=== PATIENT | male | born 1985 | race Caucasian/White ===

== ENCOUNTER 2016-11-27 04:13 | Inpatient (IN) | payer OTHER, MEDICARE ==
[2016-11-27] MEDS ORDERED: RX INFO: IV CONTRAST WAS GIVEN 1 EACH MISC MISCELLANE PRN (04:20)
[2016-11-27] MEDS ORDERED: DIPH,PERTUS(ACELL)TETVAC-LF 0.5 ML VIAL IM ONE (04:22)
[2016-11-27 04:39] LABS: Basophils % (A) 0 %; CH 30.3; Eosinophils # (A) 0.1 k/uL (0-0.7); Eosinophils % (A) 1 %; HCT 41.9 % (39.0-53.0); Luc % (Auto) 1; Lymphocytes % (A) 6 %; MCH 30.8 pg (25.0-35.0); MCHC 33.3 g/dL (31.0-37.0); MCV 92.5 fL (80.0-100.0); Mean Platelet Volume 7.5; Monocytes # (A) 0.7 k/uL (0-1.0); Monocytes % (A) 4 %; Neutrophils # (A) 14.9 k/uL (1.3-7.7); Neutrophils % (A) 89 %; RBC 4.53 m/uL (4.30-5.90); RDW 13.7 % (11.5-15.5); WBC 16.9 k/uL (3.8-10.6)
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
[2016-11-27 04:53] LABS: ALT 50 U/L (21-72); AST 52 U/L (17-59); Alkaline Phosphatase 67 U/L (38-126); Anion Gap 15 mmol/L; Blood Urea Nitrogen 9 mg/dL (9-20); Calcium 9.5 mg/dL (8.4-10.2); Carbon Dioxide 18 mmol/L (22-30); Chloride 110 mmol/L (98-107); Glucose 114 mg/dL (74-99); Non-African American GFR(MDRD) >60 (>60 ml/min/1.73 sqM); Potassium 4.5 mmol/L (3.5-5.1); Sodium 143 mmol/L (137-145)
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
[2016-11-27] MEDS ORDERED: SODIUM CHLORIDE 0.9% 1,000 ML IV ONE (05:49)
[2016-11-27] MEDS ORDERED: ACETAMINOPHEN TAB 325 MG TAB PO STA (06:15)
[2016-11-27] MEDS ORDERED: ONDANSETRON 4 MG/2 ML VIAL IVP PRN (06:40)
[2016-11-27] MEDS ORDERED: NALOXONE 0.4 MG/ML 1 ML VIAL IV PRN (06:40)
[2016-11-27] MEDS ORDERED: MORPHINE SULFATE 4 MG/ML SYRINGE IV PRN (06:40)
[2016-11-27] MEDS ORDERED: SODIUM CHLORIDE 0.9% 1,000 ML IV SCH (06:45)
[2016-11-27 06:49] LABS: Appearance,Urine Clear (Clear); Bacteria,Urine Rare /hpf; Bilirubin,Urine Negative (Negative); Glucose,Urine (UA) Negative (Negative); Ketones,Urine Trace (Negative); Leukocyte Esterase,Urine Trace (Negative); Mucus,Urine Few /hpf; Nitrite,Urine Positive (Negative); PH, Urine 5.5 (5.0-8.0); Particle Count 35040; Protein,Urine 2+ (Negative); RBC,Urine 2 /hpf (0-5); Squamous Epithelial Cell,Urine <1 /hpf (0-4); UA Billing (MACRO vs. MICRO) MICRO; Urobilinogen,Urine <2.0 mg/dL (<2.0); WBC,Urine 9 /hpf (0-5)
[2016-11-27] MEDS: BACLOFEN 10 MG TAB PO SCH ×3 (07:54→22:13)
[2016-11-27] MEDS: FAMOTIDINE 20 MG/2 ML VIAL IV SCH ×2 (07:55→22:10)
[2016-11-27] MEDS: MIDODRINE 5 MG TAB PO SCH ×2 (07:58→17:01)
[2016-11-27] MEDS: SENNOSIDES-DOCUSATE SODIUM 1 EACH TAB PO SCH (08:28)
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
[2016-11-27 12:34] LABS: INR 1.1 (<1.2); Partial Thromboplastin Time 25.7 sec (22.0-30.0); Prothrombin Time 11.2 sec (9.0-12.0)
[2016-11-27] MEDS: ACETAMINOPHEN TAB 325 MG TAB PO PRN (12:44)
[2016-11-27] MEDS: MULTIVITAMINS, THERA 1 EACH TAB PO SCH (12:45)
[2016-11-27] MEDS ORDERED: CRANBERRY FRUIT EXTRACT 650 MG PO SCH (21:00)
[2016-11-27] MEDS: OXYBUTYNIN 10 MG TAB.ER.24 PO SCH (22:11)
[2016-11-27] MEDS: BISACODYL 10 MG SUPP RECTAL SCH (22:13)
[2016-11-28] MEDS: ACETAMINOPHEN TAB 325 MG TAB PO PRN (00:34)
[2016-11-28] MEDS: MIDODRINE 5 MG TAB PO SCH ×2 (08:59→12:11)
[2016-11-28] MEDS: FAMOTIDINE 20 MG/2 ML VIAL IV SCH ×2 (08:59→21:36)
[2016-11-28] MEDS: SENNOSIDES-DOCUSATE SODIUM 1 EACH TAB PO SCH (08:59)
[2016-11-28] MEDS: BACLOFEN 10 MG TAB PO SCH ×3 (09:00→21:36)
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
[2016-11-28] MEDS: SODIUM CHLORIDE 0.9% 1,000 ML IV SCH ×2 (11:44→18:54)
[2016-11-28] MEDS: MULTIVITAMINS, THERA 1 EACH TAB PO SCH (12:09)
--- NOTE | 2016-11-28 13:08 | P.PN ---
Subjective 31-year-old with the quadriplegia admitted for left femoral fracture. Patient had fever and patient is tachycardic because of which will often essentially workup and patient will receive preoperative antibiotics as well and we will obtain a blood culture, urine culture, urinalysis chest x-ray patient's UA from yesterday was not impressive patient was is on IV fluids at this time. Patient denied any cough, chest pain, nausea, vomiting, dysuria. Objective - Vital Signs Vital signs: Vital Signs Temp 97.6 F 11/28/16 07:00 Pulse 112 H 11/28/16 07:00 Resp 18 11/28/16 07:00 BP 104/63 11/28/16 07:00 Pulse Ox 99 11/28/16 07:00 Intake & Output 11/27/16 11/28/16 11/28/16 18:59 06:59 18:59 Output Total 400 1500 Balance -400 -1500 Weight 63.503 kg Output: Urine 400 1500 Stool 0 Other: Voiding Method Self-Catheterization Indwelling Catheter # Voids 0 # Bowel Movements 1 - Exam GENERAL: The patient is alert and oriented x3, not in any acute distress. Well developed, well nourished. HEENT: Pupils are round and equally reacting to light. EOMI. No scleral icterus. No conjunctival pallor. Normocephalic, atraumatic. No pharyngeal erythema. No thyromegaly. CARDIOVASCULAR: S1 and S2 present. No murmurs, rubs, or gallops. PULMONARY: Chest is clear to auscultation, no wheezing or crackles. ABDOMEN: Soft, nontender, nondistended, normoactive bowel sounds. No palpable organomegaly. MUSCULOSKELETAL: Deferred to orthopedic surgery EXTREMITIES: No cyanosis, clubbing, or pedal edema. NEUROLOGICAL: Gross neurological examination did not reveal any new focal deficits. Patient does have chronic weakness and bilateral lower limbs and some weakness in upper limbs from his quadriplegia patient has a previous tracheostomy scar. SKIN: No rashes. - Labs CBC & Chem 7: 11/27/16 04:30 11/27/16 04:30 Assessment and Plan Plan: #1 left femoral shaft fracture: Being managed by arthritic surgery. #2 quadriplegia with the previous spinal cord injury: Patient uses baclofen for spasms which she will continue. #3 leukocytosis : Patient had fever last night because of which will often septic workup today #4 hyperchloremia due to IV fluids which were discontinued, folic acidosis is secondary to hyperchloremia. No further intervention is necessary at this point of time #5 history of gluteal abscess in the past completely healed scars now. #6 mild protein calorie malnutrition. Patient from medical perspective is okay to be discharged if that's the the plan from orthopedic perspective
[2016-11-28 13:17] LABS: Appearance,Urine Cloudy (Clear); Bacteria,Urine Rare /hpf; Bilirubin,Urine Negative (Negative); Glucose,Urine (UA) Negative (Negative); Ketones,Urine 4+ (Negative); Leukocyte Esterase,Urine Large (Negative); Mucus,Urine Rare /hpf; Nitrite,Urine Negative (Negative); Particle Count 121902; Protein,Urine Trace (Negative); Specific Gravity,Urine 1.018 (1.001-1.035); Squamous Epithelial Cell,Urine <1 /hpf (0-4); UA Billing (MACRO vs. MICRO) MICRO; Urobilinogen,Urine <2.0 mg/dL (<2.0); WBC,Urine 73 /hpf (0-5)
--- NOTE | 2016-11-28 13:18 | XR ---
EXAMINATION TYPE: XR chest 1V portable DATE OF EXAM: 11/28/2016 COMPARISON: 11/27/16 HISTORY: Chest pain TECHNIQUE: Single frontal view of the chest is obtained. FINDINGS: There is no focal air space opacity, pleural effusion, or pneumothorax seen. The cardiac silhouette size is within normal limits. The osseous structures are intact. IMPRESSION: 1. No acute process.
[2016-11-28 14:04] LABS: CH 30.2; CHCM 32.4; HCT 39.9 % (39.0-53.0); HDW 2.72; HGB 13.2 gm/dL (13.0-17.5); MCV 93.8 fL (80.0-100.0); Mean Platelet Volume 8.5; RBC 4.25 m/uL (4.30-5.90); RDW 13.8 % (11.5-15.5); WBC 16.6 k/uL (3.8-10.6)
[2016-11-28] MEDS ORDERED: ACETAMINOPHEN IV (For NPO) 1,000 MG in EMPTY BAG 1 BAG IVPB STA (14:13)
[2016-11-28 14:49] LABS: Anion Gap 17 mmol/L; Blood Urea Nitrogen 10 mg/dL (9-20); Calcium 9.7 mg/dL (8.4-10.2); Carbon Dioxide 19 mmol/L (22-30); Chloride 105 mmol/L (98-107); Glucose 88 mg/dL (74-99); Non-African American GFR(MDRD) >60 (>60 ml/min/1.73 sqM); Potassium 4.8 mmol/L (3.5-5.1); Sodium 141 mmol/L (137-145)
[2016-11-28] MEDS ORDERED: LEVOFLOXACIN 500MG-D5W PMX 500 MG in DEXTROSE/WATER 1 100ML.BAG IVPB SCH (15:00)
[2016-11-28] MEDS ORDERED: IV FLUID CONTINUATION 500 ML IV ONE (15:46)
[2016-11-28] MEDS ORDERED: ONDANSETRON 4 MG/2 ML VIAL IVP ONE ×2 (16:14→19:37)
--- NOTE | 2016-11-28 16:30 | P.PN ---
Progress Note - Text The patient is seen and examined today at bedside. We had a long discussion regards to the different treatment options with his femur fracture. I discussed the case with a number of my colleagues as well. I feel that receding with fixation of his femur would give him the best chance of healing as well as the quickest return to activities stabilization and ability to mobilize the patient while limiting, occasions such as prolonged bedrest ulceration and decreased mobility. We discussed the different risks at length including the risks of infection risk of need for further surgery risk of problems with the hardware and risks of problems anesthesia. I discussed this with his with the patient as well as with his father and his uncle at bedside. We plan to proceed with closed reduction and into medullary pallavi of the left femur with possible open reduction internal fixation. Answered the patient's questions best of my ability healing she can understand he is agreeable with the plan. He is signed informed consent we'll plan to proceed as soon as possible today. The patient does have chronic issues with urinary tract infection and we are actively treating this as he does have chronic issues with this and regular catheterization needs. He has been medicated for this and I think it is okay to proceed with surgery as scheduled today.
[2016-11-28] MEDS ORDERED: fentaNYL (PF) 50 MCG/ML 2 ML AMP ONE (16:57)
[2016-11-28] MEDS ORDERED: MIDAZOLAM 2 MG/2 ML VIAL ONE (16:57)
[2016-11-28] MEDS ORDERED: GLYCOPYRROLATE 0.2 MG/ML 2 ML VIAL ONE (16:57)
[2016-11-28] MEDS ORDERED: ePHEDrine SULFATE/0.9% NACL/PF 50 MG/5 ML SYRINGE IV ONE (16:57)
[2016-11-28] MEDS ORDERED: PROPOFOL 10 MG/ML 20 ML VIAL IV ONE (16:57)
[2016-11-28] MEDS ORDERED: PHENYLEPHRINE-0.9% NACL SYG 1 MG/10 ML SYRINGE ONE (16:57)
[2016-11-28] MEDS ORDERED: NEOSTIGMINE 1 MG/ML 10 ML VIAL ONE (16:57)
[2016-11-28] MEDS ORDERED: ROCURONIUM BROMIDE 10 MG/ML 10 ML VIAL IV ONE (16:57)
[2016-11-28] MEDS ORDERED: LIDOCAINE 1% INJ 10MG/ML (20 ML MDV) ONE (16:57)
[2016-11-28] MEDS ORDERED: SODIUM CHLORIDE 0.9% 50 ML with ceFAZolin 2,000 MG IV ONE ×2 (17:17)
[2016-11-28] MEDS ORDERED: ceFAZolin 1,000 MG in SODIUM CHLORIDE 0.9% 1,000 ML IRRIGATION ONE (17:38)
[2016-11-28] MEDS ORDERED: LACTATED RINGERS 1,000 ML IV ONE ×2 (17:38→18:45)
[2016-11-28] MEDS ORDERED: NALOXONE 0.4 MG/ML 1 ML VIAL IV PRN (19:47)
[2016-11-28] MEDS ORDERED: HYDROcodone/APAP 5-325MG 1 EACH TAB PO PRN (19:47)
[2016-11-28] MEDS ORDERED: MAGNESIUM HYDROXIDE 2,400 MG/10 ML CUP PO PRN (19:47)
[2016-11-28] MEDS ORDERED: HYDROmorphone 0.5 MG/0.5 ML SYRINGE IVP PRN (19:47)
[2016-11-28] MEDS ORDERED: SENNOSIDES 8.6 MG TAB PO PRN (19:53)
[2016-11-28] MEDS ORDERED: DOCUSATE 100 MG CAP PO PRN (19:53)
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
--- NOTE | 2016-11-28 21:23 | FL ---
EXAMINATION TYPE: FL guidance operating room, XR femur LT DATE OF EXAM: 11/28/2016 CLINICAL HISTORY: Distal left femur fracture. TECHNIQUE: Fluoroscopy. Intraoperative limited views left femur. COMPARISON: Left femur x-ray from yesterday. FINDINGS: Fluoroscopic guidance was provided during open reduction internal fixation procedure perfo rmed by Dr. Ngo. A total of 4 minutes 53 seconds of fluoroscopic time was utilized during the proc edure and 8 spot intraoperative images are acquired. Intraoperative images acquired show placement of large intramedullary pallavi with 4 distal transverse fi xating screws through comminuted fracture deformity distal femoral metadiaphysis. Improved alignment is seen after reduction and fixation. IMPRESSION: As Above.
[2016-11-28] MEDS: OXYBUTYNIN 10 MG TAB.ER.24 PO SCH (21:36)
[2016-11-28] MEDS: BISACODYL 10 MG SUPP RECTAL SCH (21:36)
[2016-11-28 21:54] LABS: Basophils % (A) 0 %; CH 30.4; CHCM 32.6; Eosinophils # (A) 0.1 k/uL (0-0.7); Eosinophils % (A) 1 %; HCT 26.6 % (39.0-53.0); HDW 2.68; Luc # (Auto) 0.08; Luc % (Auto) 1; Lymphocytes # (A) 0.9 k/uL (1.0-4.8); Lymphocytes % (A) 10 %; MCH 31.2 pg (25.0-35.0); MCHC 33.2 g/dL (31.0-37.0); MCV 93.8 fL (80.0-100.0); Mean Platelet Volume 7.9; Monocytes # (A) 0.4 k/uL (0-1.0); Monocytes % (A) 5 %; Neutrophils # (A) 7.3 k/uL (1.3-7.7); Neutrophils % (A) 82 %; RBC 2.83 m/uL (4.30-5.90); RDW 13.8 % (11.5-15.5); WBC 8.9 k/uL (3.8-10.6); WBC (Perox) 8.99
[2016-11-28 22:20] LABS: HGB 8.8 gm/dL (13.0-17.5)
[2016-11-29] MEDS: ceFAZolin 2 GM in SODIUM CHLORIDE 0.9% 100 ML IVPB SCH ×3 (00:49→15:53)
[2016-11-29] MEDS: SODIUM CHLORIDE 0.9% 1,000 ML IV SCH ×4 (03:16→23:47)
[2016-11-29] MEDS: BACLOFEN 10 MG TAB PO SCH ×3 (07:44→21:34)
[2016-11-29] MEDS: MIDODRINE 5 MG TAB PO SCH ×2 (07:45→11:30)
[2016-11-29] MEDS: FAMOTIDINE 20 MG/2 ML VIAL IV SCH (07:45)
[2016-11-29] MEDS: SENNOSIDES-DOCUSATE SODIUM 1 EACH TAB PO SCH (07:46)
[2016-11-29 07:54] LABS: CH 29.9; CHCM 31.9; HCT 26.3 % (39.0-53.0); HDW 2.77; HGB 8.6 gm/dL (13.0-17.5); MCH 30.9 pg (25.0-35.0); MCHC 32.8 g/dL (31.0-37.0); MCV 94.4 fL (80.0-100.0); Mean Platelet Volume 7.9; RBC 2.78 m/uL (4.30-5.90); WBC 7.3 k/uL (3.8-10.6)
[2016-11-29 08:15] LABS: Anion Gap 11 mmol/L; Blood Urea Nitrogen 6 mg/dL (9-20); Carbon Dioxide 17 mmol/L (22-30); Chloride 109 mmol/L (98-107); Glucose 68 mg/dL (74-99); Non-African American GFR(MDRD) >60 (>60 ml/min/1.73 sqM); Potassium 3.9 mmol/L (3.5-5.1); Sodium 137 mmol/L (137-145)
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
[2016-11-29] MEDS: ENOXAPARIN 40 MG/0.4 ML SYRINGE SQ SCH (09:55)
[2016-11-29] MEDS: MULTIVITAMINS, THERA 1 EACH TAB PO SCH (12:27)
[2016-11-29] MEDS ORDERED: LEVOFLOXACIN 500 MG TAB PO SCH (15:00)
[2016-11-29] MEDS: ACETAMINOPHEN TAB 325 MG TAB PO PRN (17:01)
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
[2016-11-29] MEDS: OXYBUTYNIN 10 MG TAB.ER.24 PO SCH (21:34)
[2016-11-29] MEDS: FAMOTIDINE 20 MG TAB PO SCH (21:35)
[2016-11-29] MEDS: BISACODYL 10 MG SUPP RECTAL SCH ×2 (21:35→21:42)
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
[2016-11-29] MEDS: ERTAPENEM 1 GM in SODIUM CHLORIDE 0.9% 50 ML IVPB SCH (23:43)
[2016-11-30] MEDS: ceFAZolin 2 GM in SODIUM CHLORIDE 0.9% 100 ML IVPB SCH ×3 (00:46→16:01)
[2016-11-30] MEDS: MIDODRINE 5 MG TAB PO SCH ×2 (09:00→13:14)
[2016-11-30] MEDS: ENOXAPARIN 40 MG/0.4 ML SYRINGE SQ SCH (09:00)
[2016-11-30] MEDS: BACLOFEN 10 MG TAB PO SCH ×3 (09:00→20:23)
[2016-11-30] MEDS: FAMOTIDINE 20 MG TAB PO SCH ×2 (09:00→20:23)
[2016-11-30 10:03] VITALS: BMI 19.5
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
[2016-11-30] MEDS: MULTIVITAMINS, THERA 1 EACH TAB PO SCH (13:14)
[2016-11-30] MEDS: SODIUM CHLORIDE 0.9% 1,000 ML IV SCH ×2 (14:45→17:31)
[2016-11-30] MEDS: SENNOSIDES-DOCUSATE SODIUM 1 EACH TAB PO SCH (14:46)
--- NOTE | 2016-11-30 15:45 | P.PN ---
Subjective 31-year-old with the quadriplegia admitted for left femoral fracture. Patient had fever and patient is tachycardic because of which will often essentially workup and patient will receive preoperative antibiotics as well and we will obtain a blood culture, urine culture, urinalysis chest x-ray patient's UA from yesterday was not impressive patient was is on IV fluids at this time. 11/29/2016 Patient has little bit abnormal urine because of which patient was started on levofloxacin although patient may have dysautonomia because of which the patient was having fevers patient had low-grade fever yesterday, will hold off on levofloxacin and the although cultures are so far negative chest x-ray did not show any pneumonic process. Infectious disease will be consulted patient knows Dr. Cheatham very well. 11/30/2016 Patient does have history of PE as well and the infectious diseases believe patient has urinary tract infection because of which patient was started on ertapenem ceftezole and was discontinued and the ID is recommending a PICC line placement on IV antibiotics as an outpatient. Patient denied any cough, chest pain, nausea, vomiting, dysuria. Objective - Vital Signs Vital signs: Vital Signs Temp 101.5 F H 11/30/16 14:55 Pulse 111 H 11/30/16 14:55 Resp 18 11/30/16 14:55 BP 123/72 11/30/16 14:55 Pulse Ox 98 11/30/16 14:55 Intake & Output 11/29/16 11/30/16 11/30/16 18:59 06:59 18:59 Intake Total 100 1000 Output Total 1100 800 400 Balance -1000 -800 600 Weight 63.503 kg 63.503 kg Intake: Intake, IV Titration 100 1000 Amount Sodium Chloride 0.9% 1, 1000 000 ml @ 125 mls/hr IV . Q8H [facility] Rx#:[id number] ceFAZolin 2 gm In Sodium 100 Chloride 0.9% 100 ml @ 100 mls/hr IVPB Q8HR [facility] Rx#:[id number] Output: Urine 1100 800 400 Stool 0 Other: Voiding Method Indwelling Catheter Indwelling Catheter Indwelling Catheter # Voids 0 400 # Bowel Movements 0 2 0 - Exam GENERAL: The patient is alert and oriented x3, not in any acute distress. Well developed, well nourished. HEENT: Pupils are round and equally reacting to light. EOMI. No scleral icterus. No conjunctival pallor. Normocephalic, atraumatic. No pharyngeal erythema. No thyromegaly. CARDIOVASCULAR: S1 and S2 present. No murmurs, rubs, or gallops. PULMONARY: Chest is clear to auscultation, no wheezing or crackles. ABDOMEN: Soft, nontender, nondistended, normoactive bowel sounds. No palpable organomegaly. MUSCULOSKELETAL: Deferred to orthopedic surgery EXTREMITIES: No cyanosis, clubbing, or pedal edema. NEUROLOGICAL: Gross neurological examination did not reveal any new focal deficits. Patient does have chronic weakness and bilateral lower limbs and some weakness in upper limbs from his quadriplegia patient has a previous tracheostomy scar. SKIN: No rashes. - Labs CBC & Chem 7: 11/29/16 07:19 11/29/16 07:19 Labs: Microbiology - Last 24 Hours (Table) 11/28/16 12:55 Blood Culture - Preliminary Blood No Growth after 48 hours 11/28/16 12:42 Blood Culture - Preliminary Blood No Growth after 48 hours 11/28/16 13:00 Urine Culture - Preliminary Urine,Catheterized Gram Neg Bacilli Assessment and Plan Plan: #1 left femoral shaft fracture: Being managed by arthritic surgery. #2 quadriplegia with the previous spinal cord injury: Patient uses baclofen for spasms which she will continue. #3 leukocytosis : Patient had fever further , possibly of urinary tract infection for which infectious disease switched him to carb up in arms and patient will be discharged on ertapenem after PICC line placement awaiting urine cultures #4 hyperchloremia due to IV fluids which were discontinued, folic acidosis is secondary to hyperchloremia. No further intervention is necessary at this point of time #5 history of gluteal abscess in the past completely healed scars now. #6 mild protein calorie malnutrition.
[2016-11-30] MEDS: ERTAPENEM 1 GM in SODIUM CHLORIDE 0.9% 50 ML IVPB SCH (20:23)
[2016-11-30] MEDS: OXYBUTYNIN 10 MG TAB.ER.24 PO SCH (20:23)
[2016-11-30] MEDS: BISACODYL 10 MG SUPP RECTAL SCH (20:24)
[2016-11-30 20:36] LABS: Basophils % (A) 1 %; CH 29.8; CHCM 30.7; Eosinophils # (A) 0.1 k/uL (0-0.7); Eosinophils % (A) 3 %; HCT 24.3 % (39.0-53.0); HDW 2.77; HGB 7.7 gm/dL (13.0-17.5); Hypochromasia Moderate; Luc # (Auto) 0.13; Luc % (Auto) 3; Lymphocytes # (A) 1.1 k/uL (1.0-4.8); Lymphocytes % (A) 21 %; MCH 30.9 pg (25.0-35.0); MCHC 31.6 g/dL (31.0-37.0); MCV 97.7 fL (80.0-100.0); Mean Platelet Volume 7.4; Monocytes # (A) 0.3 k/uL (0-1.0); Monocytes % (A) 6 %; Neutrophils # (A) 3.4 k/uL (1.3-7.7); Neutrophils % (A) 67 %; RBC 2.49 m/uL (4.30-5.90); RDW 14.2 % (11.5-15.5); WBC 5.1 k/uL (3.8-10.6); WBC (Perox) 5.37
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
[2016-12-01] MEDS: ACETAMINOPHEN TAB 325 MG TAB PO PRN (02:55)
[2016-12-01] MEDS: SODIUM CHLORIDE 0.9% 1,000 ML IV SCH ×3 (06:03→18:35)
[2016-12-01] MEDS: MIDODRINE 5 MG TAB PO SCH ×2 (08:41→12:19)
[2016-12-01] MEDS: FAMOTIDINE 20 MG TAB PO SCH ×2 (08:41→22:34)
[2016-12-01] MEDS: BACLOFEN 10 MG TAB PO SCH ×3 (08:41→22:34)
[2016-12-01] MEDS: ENOXAPARIN 40 MG/0.4 ML SYRINGE SQ SCH (08:42)
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
[2016-12-01] MEDS: MULTIVITAMINS, THERA 1 EACH TAB PO SCH (12:19)
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
[2016-12-01] MEDS ORDERED: SENNOSIDES-DOCUSATE SODIUM 1 EACH TAB PO SCH (21:00)
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
[2016-12-01] MEDS: OXYBUTYNIN 10 MG TAB.ER.24 PO SCH (22:34)
[2016-12-01] MEDS: BISACODYL 10 MG SUPP RECTAL SCH (22:41)
[2016-12-01] MEDS: ERTAPENEM 1 GM in SODIUM CHLORIDE 0.9% 50 ML IVPB SCH (22:41)
[2016-12-02] MEDS: SODIUM CHLORIDE 0.9% 1,000 ML IV SCH ×2 (04:58→10:10)
[2016-12-02] MEDS: ACETAMINOPHEN TAB 325 MG TAB PO PRN (07:41)
[2016-12-02] MEDS: MIDODRINE 5 MG TAB PO SCH ×2 (07:42→11:59)
[2016-12-02] MEDS: BACLOFEN 10 MG TAB PO SCH ×2 (07:42→12:00)
[2016-12-02] MEDS: FAMOTIDINE 20 MG TAB PO SCH (07:43)
[2016-12-02 07:52] VITALS: BP 125/74; PULSE 98; RESP 18; TEMP 98.8
[2016-12-02] MEDS ORDERED: LIDOCAINE 2% INJ 20 MG/ML SQ ONE (08:20)
--- NOTE | 2016-12-02 08:22 | P.PN ---
Progress Note - Text Progress Note Date: 12/02/16 Patient was attempted to be seen and examined at bedside this morning. Nursing states he's currently having a PICC line placed. After PICC line placement, patient is planning be discharged home this morning.
[2016-12-02] MEDS: MULTIVITAMINS, THERA 1 EACH TAB PO SCH (11:59)
[2016-12-02] MEDS: ERTAPENEM 1 GM in SODIUM CHLORIDE 0.9% 50 ML IVPB SCH (12:00)
--- NOTE | 2016-12-02 12:17 | IR ---
PICC LINE PLACEMENT: HISTORY: Infection requiring long-term antibiotic therapy PROCEDURE: Ultrasound and fluoroscopic guidance of PICC line placement. COMPLICATIONS: None ANESTHESIA: 1. 1% Lidocaine locally. FINDINGS/TECHNIQUE: The procedure was explained to the patient. The risks, complications, benefits and alternatives were discussed and any questions were answered. Informed consent was obtained. The patient was placed supine on the fluoroscopic table and prepped and draped in the usual sterile [facility] ion. Utilizing a 21 gauge needle and sonographic and fluoroscopic guidance, access in the vein was achieved and there is placement of a 0.018 guidewire. The vein is patent. A 4-F sheath was placed o samy the guidewire. The guidewire and dilator were removed and a 4-F. PICC line was placed through th e sheath with the tip at the level of the SVC. The sheath was removed, the catheter was flushed and sutured into position. The patient was stable throughout the procedure and remained stable upon disc harge from the Department of Radiology. The vein puncture was patent under ultrasound. A montalvo scale image was obtained to document patency of the vein punctured. All elements of the maximal barrier technique were utilized. FLUOROSCOPY TIME: 0.1 minute, one image obtained IMPRESSION: Successful PICC line placement under ultrasound and fluoroscopic guidance.
--- NOTE | 2016-12-02 15:32 | P.PN ---
Subjective 31-year-old with the quadriplegia admitted for left femoral fracture. Patient had fever and patient is tachycardic because of which will often essentially workup and patient will receive preoperative antibiotics as well and we will obtain a blood culture, urine culture, urinalysis chest x-ray patient's UA from yesterday was not impressive patient was is on IV fluids at this time. 11/29/2016 Patient has little bit abnormal urine because of which patient was started on levofloxacin although patient may have dysautonomia because of which the patient was having fevers patient had low-grade fever yesterday, will hold off on levofloxacin and the although cultures are so far negative chest x-ray did not show any pneumonic process. Infectious disease will be consulted patient knows Dr. Cheatham very well. 11/30/2016 Patient does have history of PE as well and the infectious diseases believe patient has urinary tract infection because of which patient was started on ertapenem ceftezole and was discontinued and the ID is recommending a PICC line placement on IV antibiotics as an outpatient. 12/01/2016 Patient is awaiting PICC line placement no complaints today. 12/02/2016 Patient had a PICC line today is being discharged today in stable medical condition to home. Patient denied any cough, chest pain, nausea, vomiting, dysuria. Objective - Vital Signs Vital signs: Vital Signs Temp 98.8 F 12/02/16 07:51 Pulse 98 12/02/16 07:51 Resp 18 12/02/16 07:51 BP 125/74 12/02/16 07:51 Pulse Ox 98 12/02/16 07:51 Intake & Output 12/01/16 12/02/16 12/02/16 18:59 06:59 18:59 Intake Total 750 Output Total 1550 Balance 750 -1550 Intake: Intake, IV Titration 750 Amount Sodium Chloride 0.9% 1, 750 000 ml @ 125 mls/hr IV . Q8H [facility] Rx#:[id number] Output: Urine 1550 Other: Voiding Method Indwelling Catheter Indwelling Catheter Indwelling Catheter # Bowel Movements 2 - Exam GENERAL: The patient is alert and oriented x3, not in any acute distress. Well developed, well nourished. HEENT: Pupils are round and equally reacting to light. EOMI. No scleral icterus. No conjunctival pallor. Normocephalic, atraumatic. No pharyngeal erythema. No thyromegaly. CARDIOVASCULAR: S1 and S2 present. No murmurs, rubs, or gallops. PULMONARY: Chest is clear to auscultation, no wheezing or crackles. ABDOMEN: Soft, nontender, nondistended, normoactive bowel sounds. No palpable organomegaly. MUSCULOSKELETAL: Deferred to orthopedic surgery EXTREMITIES: No cyanosis, clubbing, or pedal edema. NEUROLOGICAL: Gross neurological examination did not reveal any new focal deficits. Patient does have chronic weakness and bilateral lower limbs and some weakness in upper limbs from his quadriplegia patient has a previous tracheostomy scar. SKIN: No rashes. - Labs CBC & Chem 7: 11/30/16 20:06 11/29/16 07:19 Labs: Microbiology - Last 24 Hours (Table) 11/28/16 12:55 Blood Culture - Preliminary Blood No Growth after 96 hours 11/28/16 12:42 Blood Culture - Preliminary Blood No Growth after 96 hours Assessment and Plan Plan: #1 left femoral shaft fracture: Being managed by arthritic surgery. #2 quadriplegia with the previous spinal cord injury: Patient uses baclofen for spasms which she will continue. #3 leukocytosis : Patient had fever further , possibly of urinary tract infection for which infectious disease switched him to carbapenems and patient will be discharged on ertapenem after PICC line placement urine cultures are showing a ESBL E. coli #4 hyperchloremia due to IV fluids which resolved #5 history of gluteal abscess in the past completely healed scars now. #6 mild protein calorie malnutrition.
== END 2016-12-02 13:20 | disposition home health service (06) | DRG 480 ==
LOC: EC 04:13 → 4MS4W 06:42
PROVIDERS: ADMIT Orthopaedic Surgery Orthopaedic Surgery of the Spine; ATTEND Orthopaedic Surgery Orthopaedic Surgery of the Spine
PROC: 0QSC34Z Reposition Left Lower Femur with Internal Fixation Device, Percutaneous Approach (ICD-10-PCS; principal; 2016-11-27)
PROC: 02HV33Z Insertion of Infusion Device into Superior Vena Cava, Percutaneous Approach (ICD-10-PCS; 2016-11-27)
PROC: B518ZZA Fluoroscopy of Superior Vena Cava, Guidance (ICD-10-PCS; 2016-11-27)
PROC: B54MZZA Ultrasonography of Right Upper Extremity Veins, Guidance (ICD-10-PCS; 2016-11-27)
DX: S72.402A Unspecified fracture of lower end of left femur, initial encounter for closed fracture (principal); G82.50 Quadriplegia, unspecified; L89.329 Pressure ulcer of left buttock, unspecified stage; E87.8 Other disorders of electrolyte and fluid balance, not elsewhere classified; E44.1 Mild protein-calorie malnutrition; N39.0 Urinary tract infection, site not specified; L02.31 Cutaneous abscess of buttock; Z68.1 Body mass index [BMI] 19.9 or less, adult; M81.0 Age-related osteoporosis without current pathological fracture; S01.01XA Laceration without foreign body of scalp, initial encounter; M62.838 Other muscle spasm; F12.90 Cannabis use, unspecified, uncomplicated; S80.812A Abrasion, left lower leg, initial encounter; R00.0 Tachycardia, unspecified; Z82.49 Family history of ischemic heart disease and other diseases of the circulatory system; Z83.3 Family history of diabetes mellitus; Z87.891 Personal history of nicotine dependence; Z88.2 Allergy status to sulfonamides; Z88.8 Allergy status to other drugs, medicaments and biological substances; Z86.14 Personal history of Methicillin resistant Staphylococcus aureus infection; Z79.2 Long term (current) use of antibiotics; V48.1XXA Car passenger injured in noncollision transport accident in nontraffic accident, initial encounter; Y92.410 Unspecified street and highway as the place of occurrence of the external cause; Z86.19 Personal history of other infectious and parasitic diseases; Z86.711 Personal history of pulmonary embolism
CPT/HCPCS: 36415; 36569; 70450; 71010; 72125; 72170; 74177; 76937; 77001; 80048; 80053; 81001; 83605; 84484; 85025; 85027; 85610; 85730; 86850; 86900; 86901; 87040; 87077; 87086; 87186; 90471; 90715; 93005; 94760; 96360; 99285

== ENCOUNTER 2017-03-06 11:19 | Day surgery (SDC) | payer MEDICARE, OTHER ==
[2017-03-06 07:53] VITALS: BMI 19.5
[~2017-03-06 11:19] MED LIST: BACITRACIN 50,000 UNIT, POLYMYXIN B 500,000 UNIT in SODIUM CHLORIDE 0.9% IRRIGATIO 1,00... IRRIGATION ONE; Pre Op ABX Message 1 EACH MISC MISCELLANE ONE
[2017-03-06] MEDS ORDERED: LIDOCAINE 1% 20 ML VIAL (10MG/ML) FOR IV START INTRADERMA PRN (11:25)
[2017-03-06] MEDS ORDERED: ONDANSETRON 4 MG/2 ML VIAL IVP ONE (11:25)
[2017-03-06] MEDS ORDERED: HYDROmorphone 0.5 MG/0.5 ML SYRINGE IVP PRN (11:25)
[2017-03-06] MEDS ORDERED: LACTATED RINGERS 1,000 ML IV SCH (11:25)
[2017-03-06 11:48] VITALS: RESP 16; TEMP 98.2
[2017-03-06] MEDS ORDERED: DEXAMETHASONE SOD PHOS (MDV) 100 MG/10 ML VIAL IV ONE (11:54)
[2017-03-06] MEDS ORDERED: MIDAZOLAM 2 MG/2 ML VIAL ONE (12:48)
[2017-03-06] MEDS ORDERED: fentaNYL (PF) 50 MCG/ML 2 ML AMP ONE (12:48)
[2017-03-06] MEDS ORDERED: PROPOFOL 10 MG/ML 20 ML VIAL IV ONE (12:48)
[2017-03-06] MEDS ORDERED: HYDROcodone/APAP 5-325MG 1 EACH TAB PO PRN (13:28)
[2017-03-06] MEDS ORDERED: SENNOSIDES 8.6 MG TAB PO PRN (13:35)
[2017-03-06] MEDS ORDERED: DOCUSATE 100 MG CAP PO PRN (13:35)
[2017-03-06] MEDS ORDERED: traMADol 50 MG TAB PO PRN (13:35)
--- NOTE | 2017-03-06 13:48 | P.OP ---
Date of Procedure: 03/06/17 Preoperative Diagnosis: Recurrent olecranon bursitis Olecranon bursal hypertrophy Postoperative Diagnosis: Same Anesthesia: other (Sedation, patient has history of quadriplegia and decreased sensation at his upper and lower extremities) Pathology: other (Deep wound culture sent to pathology, hypertrophic olecranon bursa sent to pathology) Condition: stable Disposition: PACU Description of Procedure: BRIEF OPERATIVE NOTE Preoperative Diagnosis: Recurrent olecranon bursitis, olecranon bursal hypertrophy Postoperative Diagnosis: Same Procedure: Irrigation and debridement of right olecranon bursa Excisional debridement of hypertrophic olecranon bursa Surgeon: Dr. Ngo Cell Tender Helper: Chris Zabala is present throughout the entire the case persistence during positioning, dissection, exposure, visualization, and all crucial elements of the case as well as closure. Anesthesia: anesthesia with sedation (patient has history of quadriplegia and decreased sensation in upper and lower extremities) Estimated blood loss: Approximately 50 mL Complications: None apparent Components implanted: None Specimen; deep wound culture sent to microbiology, large portions of hypertrophic olecranon bursa sent to pathology Disposition: To recovery room in good stable condition. OPERATIVE INDICATIONS The patient has been having issues in his right elbow over the past month. He had noted some swelling at the area. He is subtotal quadriplegic with no use of his lower extremities and limited use of his upper extremities. He uses a wheelchair for mobilization but is able to transfer himself to his wheelchair in general and we'll himself with his bilateral upper extremities though he has limited function in his hands wrist elbows and shoulders. He developed some swelling over his right elbow and was found have some olecranon bursitis. This was initially drained in the office with some clear straw-colored fluid approximately 30 mL drained. He had some compression and local wound treatment but developed recurrent bursitis. He did not have any evidence of infection. There is no erythema there is no followed her there is no skin breakdown. There is no evidence of injury. He had recurrent drainage but there is persistent thickening about the olecranon bursa and recurrent drainage quickly. He again had significant recurrence of the bursitis to a greater extent than it had before and was not having any evidence of infection or fevers or skin breakdown. We felt however that the persistent recurrence and the significant thickening of the bursa that he would do well with irrigation and debridement and excision of the bursa itself. We discussed different risks, patient alternatives and benefits of various treatment options ranging from conservative to surgical neck discussed the risks of surgery including but not limited to the risk of bleeding risk and infection risk and need for further surgery risk of decreased loss of motion loss function was all explained to him the patient elected to proceed with surgical intervention and signed informed consent. OPERATIVE SUMMARY After discussing all the risks, patient alternatives and benefits at length, the patient elected to proceed with surgical intervention, signed informed consent, and presented for their procedure. The patient was seen and examined in the preoperative holding area and the surgical site was marked. The patient was given antibiotics and brought to the operating room. The patient was sedated by anesthesia in standard fashion. The patient was positioned on to the operating room table in a supine position on the appropriate frame which was well-padded and well molded. We were careful to pad any bony prominences and pressure points. We were careful to maintain the patient's cervical spine and good neutral alignment and position throughout. The patient was prepped and draped in a normal standard fashion with his right arm draped free and a nonsterile tourniquet over his right upper extremity. We did not use the tourniquet.. An appropriate timeout and keystone protocol performed. We were able to proceed with the surgery. The olecranon bursa was easily identified. An incision was made over the posterior lateral aspect of the olecranon bursa approximately 1 inch in length. A large amount of straw-colored fluid and bloody fluid came out of the significant inflamed olecranon bursa. There is portions of fat globules as well. There is no evidence of purulence. There is no foul odor. There is no evidence of obvious infection. There is large hypertrophy of the olecranon bursa itself. I was able to palpate and fell large palpable capsule fragments. I then dissected under the skin and around the capsule was able to remove large portions of the olecranon bursa itself. It was severely hypertrophic. There is no evidence of any involvement in the muscle or the triceps or the bone itself. The triceps appear to be intact as did the various muscular suture. I did not explore or see the ulnar nerve. I was able to remove large portions of the olecranon bursa which were sent for pathology. With area removed and the significant reduction in the size I was able to then copiously irrigated and suctioned dry the area. We were able to proceed with closure. Deep tissue was tacked down with 2-0 Vicryl and skin was closed with nylon. The wound was cleaned and dried and dressed with the appropriate dressing. The drapes were broken down. We're able to dress patient in a bulky dressing with Cosme wrap. He was transferred back to his stretcher being stable from the anesthesia and brought to recovery in good stable condition. The patient will be discharged from the hospital after appropriate postoperative care, medical management and monitoring. We will continue to follow them closely about the postoperative course. I'll plan to see the patient back tomorrow as an outpatient for recheck evaluation.
[2017-03-06 14:27] VITALS: BP 112/68; PULSE 63
[2017-03-06] MEDS ORDERED: ceFAZolin IN SWFI 2 GM/20 ML SYRINGE IVP SCH (16:00)
[2017-03-06] MEDS ORDERED: BACLOFEN 40 MG PO SCH (21:00)
[2017-03-06] MEDS ORDERED: NON-FORMULARY DRUG (Midodrine Hcl [Proamatine] 10 MG) PO SCH (21:00)
[2017-03-07] MEDS ORDERED: OXYBUTYNIN 10 MG TAB.ER.24 PO SCH (09:00)
[2017-03-07] MEDS ORDERED: CRANBERRY FRUIT EXTRACT 650 MG PO SCH (09:00)
== END 2017-03-06 14:31 | disposition home or self-care (01) ==
LOC: OR 11:19
PROVIDERS: ATTEND Orthopaedic Surgery Orthopaedic Surgery of the Spine
DX: M70.21 Olecranon bursitis, right elbow (principal); S14.155S Other incomplete lesion at C5 level of cervical spinal cord, sequela; V92.0 Drowning and submersion due to fall off watercraft; G82.50 Quadriplegia, unspecified; Z99.3 Dependence on wheelchair; Z79.899 Other long term (current) drug therapy; Z79.891 Long term (current) use of opiate analgesic; Z88.1 Allergy status to other antibiotic agents; Z88.2 Allergy status to sulfonamides
CPT/HCPCS: 88305; 87070; 87205; 87075; 24105; J2250; J2405; J3010; J1100; J2704; 87077; 87186

== ENCOUNTER 2018-04-29 06:44 | Emergency (ER) | payer MEDICARE, OTHER ==
[2018-04-29] MEDS ORDERED: MORPHINE SULFATE 4 MG/ML SYRINGE IV STA (07:13)
[2018-04-29] MEDS ORDERED: METOCLOPRAMIDE 5 MG/ML 2 ML VIAL IVP STA (07:13)
[2018-04-29] MEDS ORDERED: SODIUM CHLORIDE 0.9% 1,000 ML IV STA ×2 (07:13)
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
[2018-04-29 08:17] LABS: Basophils % (A) 1 %; Eosinophils # (A) 0.1 k/uL (0-0.7); Eosinophils % (A) 2 %; HCT 38.2 % (39.0-53.0); Lymphocytes # (A) 0.7 k/uL (1.0-4.8); Lymphocytes % (A) 16 %; MCH 30.3 pg (25.0-35.0); Mean Platelet Volume 7.5; Monocytes # (A) 0.3 k/uL (0-1.0); Monocytes % (A) 8 %; Neutrophils # (A) 3.3 k/uL (1.3-7.7); Neutrophils % (A) 72 %; Platelet Count 216 k/uL (150-450); RBC 4.29 m/uL (4.30-5.90); RDW 13.5 % (11.5-15.5); WBC 4.6 k/uL (3.8-10.6)
[2018-04-29 08:28] LABS: ALT 31 U/L (21-72); AST 18 U/L (17-59); Albumin 4.3 g/dL (3.5-5.0); Alkaline Phosphatase 56 U/L (38-126); Amylase 38 U/L (30-110); Anion Gap 11 mmol/L; Blood Urea Nitrogen 10 mg/dL (9-20); Calcium 9.6 mg/dL (8.4-10.2); Carbon Dioxide 25 mmol/L (22-30); Chloride 105 mmol/L (98-107); Glucose 93 mg/dL (74-99); Lipase 31 U/L (23-300); Potassium 4.2 mmol/L (3.5-5.1); Sodium 141 mmol/L (137-145); Total Bilirubin 1.9 mg/dL (0.2-1.3); Total Protein 6.9 g/dL (6.3-8.2)
[2018-04-29 08:56] LABS: Appearance,Urine Cloudy (Clear); Bacteria,Urine Many /hpf; Bilirubin,Urine Negative (Negative); Blood,Urine Trace (Negative); Color,Urine Yellow; Glucose,Urine (UA) Negative (Negative); Ketones,Urine 2+ (Negative); Leukocyte Esterase,Urine Large (Negative); Mucus,Urine Few /hpf; Nitrite,Urine Positive (Negative); Protein,Urine 1+ (Negative); RBC,Urine 10 /hpf (0-5); Specific Gravity,Urine 1.017 (1.001-1.035); Squamous Epithelial Cell,Urine 2 /hpf (0-4); Urobilinogen,Urine <2.0 mg/dL (<2.0); WBC,Urine >182 /hpf (0-5)
--- NOTE | 2018-04-29 09:33 | CT ---
EXAMINATION TYPE: CT abdomen pelvis w con DATE OF EXAM: 04/29/2018 COMPARISON: 11/27/2016 HISTORY: 32-year-old male generalized pain TECHNIQUE: Contiguous axial scanning of the abdomen and pelvis following administration of 100 ml Iso carlene 300 IV contrast. Delayed images through the kidneys and coronal/sagittal reconstructions perform ed. CT DLP: 435.8 mGycm Automated exposure control for dose reduction was used. FINDINGS: Heart normal size without pericardial effusion. Lung bases clear without pleural effusion. No focal liver lesion or biliary ductal dilatation. Portal venous system is patent. Gallbladder, adrenal glands, kidneys, spleen, and pancreas appear within normal limits. IVC filter is demonstrated. Incidental elongated 11 x 4 mm appendicolith. No abnormal appendiceal dilatation. No dilated small olivier wel or free air. No evidence of mesenteric or retroperitoneal lymphadenopathy though assessment is li mited due to possibility of intra-abdominal fat. There is [id number] circumferential wall thickening of the mid to distal rectum with mild andrew cral edema and mild pelvic free fluid. No significant rectal stool. No pelvic lymphadenopathy seen. Bones: Old bony deformity right lesser trochanter and prior partially visualized intramedullary naili ng of the left femur. No osseous destructive process. IMPRESSION: 1. MILD TO MODERATE CIRCUMFERENTIAL WALL THICKENING MID TO DISTAL RECTUM WITH PRESACRAL EDEMA AND MIL D PELVIC FREE FLUID. CORRELATE FOR PROCTITIS. 2. INCIDENTAL 1.1 CM ELONGATED APPENDICOLITH WITHOUT EVIDENCE FOR ACUTE APPENDICITIS.
[2018-04-29] MEDS ORDERED: cefTRIAXone IN SWFI 1,000 MG/10 ML SYRINGE IVP STA (09:40)
[2018-04-29 10:21] VITALS: BP 143/100; PULSE 56; RESP 14; TEMP 97.3
== END 2018-04-29 11:24 | disposition home or self-care (01) ==
LOC: EC 06:44
DX: N39.0 Urinary tract infection, site not specified (principal); G82.50 Quadriplegia, unspecified; R10.31 Right lower quadrant pain; R10.33 Periumbilical pain; Z86.14 Personal history of Methicillin resistant Staphylococcus aureus infection; Z79.899 Other long term (current) drug therapy; Z88.2 Allergy status to sulfonamides; Z88.1 Allergy status to other antibiotic agents
CPT/HCPCS: 36415; 80053; 82150; 83690; 85025; 81001; 74177; 96374; 96375 ×2; 96361; 99285; J2270; J2765; J0696; Q9967

== ENCOUNTER 2018-05-20 07:04 | Observation (INO) | payer MEDICARE, OTHER ==
[2018-05-20] MEDS ORDERED: SODIUM CHLORIDE 0.9% 1,000 ML IV STA (07:37)
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
[2018-05-20 08:31] LABS: VBG PH 7.4 (7.31-7.41)
[2018-05-20 08:34] LABS: Basophils % (A) 0 %; Eosinophils # (A) 0.2 k/uL (0-0.7); Eosinophils % (A) 2 %; HCT 39.9 % (39.0-53.0); HGB 13.3 gm/dL (13.0-17.5); Lymphocytes % (A) 11 %; MCHC 33.4 g/dL (31.0-37.0); Mean Platelet Volume 7.4; Monocytes # (A) 0.4 k/uL (0-1.0); Monocytes % (A) 4 %; Neutrophils # (A) 7.1 k/uL (1.3-7.7); Neutrophils % (A) 82 %; Platelet Count 216 k/uL (150-450); RBC 4.43 m/uL (4.30-5.90); RDW 13.3 % (11.5-15.5); WBC 8.7 k/uL (3.8-10.6)
[2018-05-20 08:43] LABS: ALT 22 U/L (21-72); AST 19 U/L (17-59); Albumin 4.3 g/dL (3.5-5.0); Alkaline Phosphatase 48 U/L (38-126); Anion Gap 9 mmol/L; Blood Urea Nitrogen 19 mg/dL (9-20); Calcium 9.5 mg/dL (8.4-10.2); Carbon Dioxide 25 mmol/L (22-30); Chloride 103 mmol/L (98-107); Glucose 93 mg/dL (74-99); Lipase 74 U/L (23-300); Sodium 137 mmol/L (137-145); Total Bilirubin 1.4 mg/dL (0.2-1.3); Total Protein 6.8 g/dL (6.3-8.2)
[2018-05-20 08:48] LABS: Appearance,Urine Clear (Clear); Bacteria,Urine Many /hpf; Bilirubin,Urine Negative (Negative); Blood,Urine Negative (Negative); Color,Urine Yellow; Glucose,Urine (UA) Negative (Negative); Ketones,Urine Negative (Negative); Leukocyte Esterase,Urine Trace (Negative); Mucus,Urine Rare /hpf; Nitrite,Urine Negative (Negative); Protein,Urine Negative (Negative); Specific Gravity,Urine 1.014 (1.001-1.035); Squamous Epithelial Cell,Urine <1 /hpf (0-4); Urobilinogen,Urine <2.0 mg/dL (<2.0); WBC,Urine 5 /hpf (0-5)
[2018-05-20] MEDS ORDERED: NALOXONE 0.4 MG/ML 1 ML VIAL IV PRN (09:52)
[2018-05-20] MEDS: SODIUM CHLORIDE 0.9% 1,000 ML IV SCH (10:22)
[2018-05-20 15:26] VITALS: BMI 17.2
[2018-05-20] MEDS ORDERED: SENNOSIDES 8.6 MG TAB PO PRN (18:22)
[2018-05-20] MEDS ORDERED: traMADol 50 MG TAB PO PRN (18:22)
[2018-05-20] MEDS ORDERED: MIDODRINE 5 MG TAB PO SCH (21:00)
[2018-05-20] MEDS ORDERED: OXYBUTYNIN 10 MG TAB.ER.24 PO SCH (21:00)
[2018-05-20] MEDS ORDERED: BISACODYL 10 MG SUPP RECTAL SCH (21:00)
[2018-05-20] MEDS ORDERED: BACLOFEN 10 MG TAB PO SCH (21:00)
[2018-05-20] MEDS: DOCUSATE 100 MG CAP PO SCH (22:37)
[2018-05-21] MEDS: BACLOFEN 10 MG TAB PO SCH ×2 (08:19→12:36)
[2018-05-21] MEDS: DOCUSATE 100 MG CAP PO SCH ×2 (08:19→08:28)
[2018-05-21] MEDS: MIDODRINE 5 MG TAB PO SCH ×2 (08:19→12:36)
[2018-05-21 08:22] LABS: Basophils % (A) 0 %; Eosinophils # (A) 0.1 k/uL (0-0.7); Eosinophils % (A) 2 %; HGB 13.2 gm/dL (13.0-17.5); Lymphocytes # (A) 1.1 k/uL (1.0-4.8); Lymphocytes % (A) 31 %; MCH 29.8 pg (25.0-35.0); MCHC 33.1 g/dL (31.0-37.0); Mean Platelet Volume 8.3; Monocytes # (A) 0.3 k/uL (0-1.0); Monocytes % (A) 8 %; Neutrophils # (A) 1.9 k/uL (1.3-7.7); Neutrophils % (A) 56 %; Platelet Count 216 k/uL (150-450); RBC 4.44 m/uL (4.30-5.90); RDW 13.7 % (11.5-15.5); WBC 3.5 k/uL (3.8-10.6)
[2018-05-21 08:39] LABS: Anion Gap 6 mmol/L; Blood Urea Nitrogen 10 mg/dL (9-20); Calcium 9.2 mg/dL (8.4-10.2); Carbon Dioxide 27 mmol/L (22-30); Chloride 108 mmol/L (98-107); Glucose 85 mg/dL (74-99); Potassium 4.6 mmol/L (3.5-5.1); Sodium 141 mmol/L (137-145)
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
[2018-05-21] MEDS: SODIUM CHLORIDE 0.9% 1,000 ML IV SCH (09:39)
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
[2018-05-21] MEDS ORDERED: HEPARIN SODIUM,PORCINE 5,000 UNIT/ML 1 ML VIAL SQ SCH (11:15)
[2018-05-21 12:02] VITALS: BP 97/57; PULSE 100; TEMP 98.5
[2018-05-21] MEDS ORDERED: DICYCLOMINE 10 MG CAP PO PRN (12:31)
--- NOTE | 2018-05-21 15:07 | XR ---
EXAMINATION TYPE: XR abdomen 1V DATE OF EXAM: 05/21/2018 COMPARISON: None INDICATION: Constipation stool burden TECHNIQUE: Single view abdomen supine view FINDINGS: Stomach is distended with bowel gas. Normal colonic bowel gas is within the descending colon and kaur sverse colon region. Mild fecal debris is near the hepatic flexure. A loop of air-filled small bowel loop is near the terminal ileum. A filter is at the L1-L2 level. Psoas margins are normal. Organomegaly is not evident. A Parth's lob e of liver is likely present. No organomegaly is present. IMPRESSION: 1. Nonspecific abdomen. 2. Significant stool retention is not evident
[2018-05-21 20:32] VITALS: RESP 16
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
== END 2018-05-21 21:20 | disposition home or self-care (01) ==
LOC: EC 07:04 → 3NMEDONC 09:52
PROVIDERS: ADMIT Hospitalist; ATTEND Hospitalist
DX: R10.9 Unspecified abdominal pain (principal); I95.9 Hypotension, unspecified; R68.0 Hypothermia, not associated with low environmental temperature; K59.00 Constipation, unspecified; E87.2 Acidosis; G82.50 Quadriplegia, unspecified; F12.90 Cannabis use, unspecified, uncomplicated; R61 Generalized hyperhidrosis; R23.1 Pallor; R64 Cachexia; Z68.1 Body mass index [BMI] 19.9 or less, adult; Z79.899 Other long term (current) drug therapy; Z88.1 Allergy status to other antibiotic agents; Z88.2 Allergy status to sulfonamides; Z16.12 Extended spectrum beta lactamase (ESBL) resistance; Z95.828 Presence of other vascular implants and grafts; Z87.440 Personal history of urinary (tract) infections; Z87.891 Personal history of nicotine dependence; Z87.81 Personal history of (healed) traumatic fracture; Z87.2 Personal history of diseases of the skin and subcutaneous tissue; Z86.14 Personal history of Methicillin resistant Staphylococcus aureus infection; Z83.3 Family history of diabetes mellitus; Z82.49 Family history of ischemic heart disease and other diseases of the circulatory system; Z83.49 Family history of other endocrine, nutritional and metabolic diseases; W16 Fall, jump or diving into water
CPT/HCPCS: 96372; 96360; 99284; 36415; 80053; 80048; 82803; 83605; 83690; 83735; 85025 ×2; 81001; 87040; 87086; 87077; 87186; 74018; G0378 ×2; J1644

== ENCOUNTER 2018-06-07 10:41 | Day surgery (SDC) | payer MEDICARE, OTHER ==
[2018-06-05 15:49] VITALS: BMI 17.4
[~2018-06-07 10:41] MED LIST changes: -BACITRACIN 50,000 UNIT, POLYMYXIN B 500,000 UNIT in SODIUM CHLORIDE 0.9% IRRIGATIO 1,00... IRRIGATION ONE; +LACTATED RINGERS 1,000 ML IV SCH; +LIDOCAINE 1% 20 ML VIAL (10MG/ML) FOR IV START INTRADERMA PRN; +MIDAZOLAM (PF) 2 MG/2 ML VIAL IV PRN; -Pre Op ABX Message 1 EACH MISC MISCELLANE ONE
[2018-06-07 11:17] VITALS: RESP 16; TEMP 97.9
[2018-06-07] MEDS ORDERED: LIDOCAINE 1% INJ 10MG/ML (20 ML MDV) ONE (12:21)
[2018-06-07] MEDS ORDERED: PROPOFOL 10 MG/ML 20 ML VIAL IV ONE (12:21)
--- NOTE | 2018-06-07 13:20 | P.PCN ---
Date of Procedure: 06/07/18 Description of Procedure: BRIEF HISTORY: The patient is a pleasant 33-year-old male with a known medical history of quadriplegia who is been experiencing abdominal pain and change in his bowel habits over the past few months. At baseline the patient suffers from constipation for which he uses oral laxatives as well as suppositories. He reports bowel movements are fairly stable on this regimen. He has been having abdominal pain though and presents for further evaluation of his symptoms. PROCEDURE PERFORMED: Colonoscopy with biopsy. PREOPERATIVE DIAGNOSIS: Change in bowel habits, abdominal pain. ESTIMATED BLOOD LOSS: Minimal. IV sedation per Anesthesia. PROCEDURE: After informed consent was obtained, the patient, was brought into the endoscopy unit. IV sedation was administered by Anesthesia under continuous monitoring. Digital rectal examination was normal. Initially the Olympus CF-190 flexible video colonoscope was then inserted in the rectum, gradually advanced into the cecum without any difficulty. Careful examination was performed as the scope was gradually being withdrawn. Ileocecal valve and the appendiceal orifice were visualized and appeared normal. Terminal ileum was intubated and appeared normal, with biopsies taken. Prep was excellent. Mucosa of the cecum, ascending colon, transverse colon, descending colon, sigmoid colon, and rectum appeared normal, with random biopsies of the right colon, transverse colon and left colon taken secondary to change in the patient's bowel habits. Retroflexion was performed in the rectum and no lesions were seen, mild internal hemorrhoids noted. The patient tolerated the procedure well. IMPRESSION: Normal-appearing colon from rectum to cecum with random biopsies of the right colon, transverse colon and left colon. Terminal ileum was intubated and appeared normal random biopsies taken Mild internal hemorrhoids. RECOMMENDATIONS: Findings of this examination were discussed with the patient and his family. Await pathology from biopsies. Continue bowel regimen. Okay to resume diet.
[2018-06-07 13:28] VITALS: PULSE 87
[2018-06-07 13:39] VITALS: BP 99/62
== END 2018-06-07 14:14 | disposition home or self-care (01) ==
LOC: ORWHC2ENDO 10:41
PROVIDERS: ATTEND Internal Medicine
DX: R19.4 Change in bowel habit (principal); G82.50 Quadriplegia, unspecified; R10.9 Unspecified abdominal pain; K64.8 Other hemorrhoids; Z88.2 Allergy status to sulfonamides; Z79.891 Long term (current) use of opiate analgesic
CPT/HCPCS: 88305; 45380; J2001; J2704

== ENCOUNTER → 2019-12-23 | Outpatient (CLI) | payer MEDICARE, OTHER ==
--- NOTE | 2019-12-24 07:48 | CT ---
EXAMINATION TYPE: CT abdomen pelvis wo con DATE OF EXAM: 12/23/2019 COMPARISON: 04/29/2018 INDICATION: Abdominal pain, hematuria DLP: 476 mGycm, Automated exposure control for dose reduction was used. CONTRAST: 0 mL of Isovue 300. Study performed with Oral Contrast TECHNIQUE: Axial images were obtained from above the diaphragm to the pubic rami in the axial plane a t 5 mm thick sections. Reconstructed images are reviewed on the computer in the coronal plane. FINDINGS: Limited CT sections are obtained the lung bases. The lung bases are clear. CT ABDOMEN: Liver: Normal Spleen: Normal Pancreas: Normal Adrenal glands: The adrenal glands are normal. Gallbladder: Normal Kidneys: No masses are evident. No hydronephrosis is present. No cysts are present. No renal stone s are identified. Aorta: Vascular calcification is within the aorta. Inferior vena cava: There is a filter within the inferior vena cava. CT PELVIS: Loops of bowel within the abdomen and pelvis are normal. There are multiple loops of bowel which are incompletely distended or lack oral contrast limiting their evaluation. Appendix: Normal as visualized. Urinary bladder: There is a smooth 1.0 x 2.0 cm calcification within the dependent portion of the uri nary bladder. This is a new finding. Genitourinary structures: Prostate is prominent. Osseous structures: No suspicious lytic or sclerotic lesions. IMPRESSIONS: 1. Development of a large urinary bladder calcification. 2. No renal or ureteral stones are identified. Renal collecting system masses may be more difficult t o visualize on this noncontrast study.
== END | disposition home or self-care (01) ==
LOC: RADCTMAIN 17:00
PROVIDERS: ATTEND Family Medicine
DX: R10.84 Generalized abdominal pain (principal); R31.0 Gross hematuria
CPT/HCPCS: 74176

== ENCOUNTER → 2020-01-15 | Outpatient (CLI) | payer MEDICARE, OTHER ==
[2020-01-15 12:20] LABS: Basophils % (A) 1 %; Eosinophils # (A) 0.1 k/uL (0-0.7); Eosinophils % (A) 2 %; HCT 42.7 % (39.0-53.0); HGB 14.5 gm/dL (13.0-17.5); Lymphocytes # (A) 1.5 k/uL (1.0-4.8); Lymphocytes % (A) 25 %; MCH 30.9 pg (25.0-35.0); MCHC 34.1 g/dL (31.0-37.0); MCV 90.7 fL (80.0-100.0); Mean Platelet Volume 8.3; Monocytes # (A) 0.4 k/uL (0-1.0); Monocytes % (A) 6 %; Neutrophils # (A) 3.8 k/uL (1.3-7.7); Neutrophils % (A) 64 %; Platelet Count 246 k/uL (150-450); RDW 12.8 % (11.5-15.5)
[2020-01-15 12:31] LABS: Amorphous Sediment,Urine Rare /hpf; Appearance,Urine Clear (Clear); Bacteria,Urine Rare /hpf; Bilirubin,Urine Negative (Negative); Blood,Urine Negative (Negative); Color,Urine Light Yellow; Glucose,Urine (UA) Negative (Negative); Ketones,Urine Negative (Negative); Leukocyte Esterase,Urine Small (Negative); Mucus,Urine Rare /hpf; Nitrite,Urine Negative (Negative); Protein,Urine Trace (Negative); RBC,Urine 1 /hpf (0-5); Specific Gravity,Urine 1.007 (1.001-1.035); Sperm,Urine Occasional /hpf; Squamous Epithelial Cell,Urine 2 /hpf (0-4); Urobilinogen,Urine <2.0 mg/dL (<2.0); WBC,Urine 7 /hpf (0-5)
[2020-01-15 12:33] LABS: African American GFR (CKD) >90 (>60 ml/min/1.73 sqM); Anion Gap 9 mmol/L; Blood Urea Nitrogen 19 mg/dL (9-20); Calcium 9.9 mg/dL (8.4-10.2); Carbon Dioxide 26 mmol/L (22-30); Chloride 104 mmol/L (98-107); Glucose 93 mg/dL (74-99); Non-African American GFR(CKD) >90 (>60 ml/min/1.73 sqM); Potassium 4.4 mmol/L (3.5-5.1); Sodium 139 mmol/L (137-145)
== END | disposition home or self-care (01) ==
LOC: LABPAT 11:13
PROVIDERS: ATTEND Urology
DX: Z01.818 Encounter for other preprocedural examination (principal); N21.9 Calculus of lower urinary tract, unspecified
CPT/HCPCS: 36415; 80048; 81001; 85025; 87086

== ENCOUNTER 2020-01-22 08:21 | Day surgery (SDC) | payer MEDICARE, OTHER ==
[2020-01-20 08:58] VITALS: BMI 18.1
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
[~2020-01-22 08:21] MED LIST changes: +AMPICILLIN 1,000 MG in SODIUM CHLORIDE 0.9% 50 ML IVPB PRN; +GENTAMICIN 90 MG in SODIUM CHLORIDE 0.9% 100 ML IVPB PRN; +HYDROmorphone 0.5 MG/0.5 ML SYRINGE IVP PRN; -LIDOCAINE 1% 20 ML VIAL (10MG/ML) FOR IV START INTRADERMA PRN; -MIDAZOLAM (PF) 2 MG/2 ML VIAL IV PRN; +MIDAZOLAM 2 MG/2 ML VIAL IV PRN; +ONDANSETRON 4 MG/2 ML VIAL IVP PRN; +fentaNYL (PF) 50 MCG/ML 2 ML AMP IV PRN
--- NOTE | 2020-01-22 08:54 | XR ---
EXAMINATION TYPE: XR KUB DATE OF EXAM: 01/22/2020 8:36 AM CLINICAL HISTORY: Bladder calculus. TECHNIQUE: Two supine KUB images of the abdomen are obtained. COMPARISON: CT abdomen and pelvis December 23, 2019 FINDINGS: The bladder calculus measures 2.2 cm long axis over the central lower pelvis ovoid in shape . Overall nonobstructive bowel gas pattern. IVC filter overlies the right L1-L2 level. Lung bases are c lear. Advanced joint space loss right hip joint redemonstrated. IMPRESSION: There is 2.2 cm bladder calculus redemonstrated.
[2020-01-22] MEDS ORDERED: ONDANSETRON 4 MG/2 ML VIAL ONE (08:56)
[2020-01-22] MEDS ORDERED: DEXAMETHASONE SOD PHOSPHATE 4 MG/ML 1 ML VIAL IVP ONE (09:26)
[2020-01-22] MEDS ORDERED: LIDOCAINE 1% INJ 10MG/ML (20 ML MDV) ONE (10:17)
[2020-01-22] MEDS ORDERED: fentaNYL (PF) 50 MCG/ML 2 ML AMP ONE (10:17)
[2020-01-22] MEDS ORDERED: PROPOFOL 10 MG/ML 20 ML VIAL IV ONE (10:17)
[2020-01-22] MEDS ORDERED: ESMOLOL 100 MG/10 ML VIAL ONE (10:17)
[2020-01-22] MEDS ORDERED: MIDAZOLAM 2 MG/2 ML VIAL ONE (10:17)
[2020-01-22] MEDS ORDERED: GLYCOPYRROLATE 0.2 MG/ML 2 ML VIAL ONE (10:17)
[2020-01-22] MEDS ORDERED: ePHEDrine SULFATE/0.9% NACL/PF 50 MG/5 ML SYRINGE IV ONE (10:17)
--- NOTE | 2020-01-22 11:11 | P.OP ---
Date of Procedure: 01/22/20 Preoperative Diagnosis: Quadriplegia, bladder stone Postoperative Diagnosis: Same Procedure(s) Performed: Cystoscopy with cystolithotripsy Anesthesia: LUISITO Surgeon: Jean Rose Estimated Blood Loss (ml): 10 Pathology: other (Stone) Condition: stable Disposition: PACU Indications for Procedure: Patient is a 34-year-old quadriplegic who is on intermittent catheterization. He has been having increasing leakage and infection. Evaluation led to identify 2 cm bladder stone and comes for cystoscopy lithotripsy Description of Procedure: Patient brought operating suite. Given general anesthesia. He's placed lithotomy position with sterile prep and drape. Under direct vision the 17- [place] sheath Foroblique lenses introduced in urethra. The bladder is irrigated out of debris. With the 3 and a 65 laser probe the stone was identified and broken into tiny pieces and flushed out of the bladder. Patient's awake and returned recovery in good condition. At the end of the procedure there is no remaining stone. A Francis catheter remain in for 1 week to allow the bladder to drain completely and any sand appear to follow-up in the office next week for catheter removal.
[2020-01-22 11:24] VITALS: RESP 16; TEMP 97
[2020-01-22 12:56] VITALS: BP 104/66; PULSE 95
== END 2020-01-22 13:32 | disposition home or self-care (01) ==
LOC: OR 08:21
PROVIDERS: ATTEND Urology
DX: N21.0 Calculus in bladder (principal); G82.50 Quadriplegia, unspecified; Z88.2 Allergy status to sulfonamides; Z79.899 Other long term (current) drug therapy; Z87.891 Personal history of nicotine dependence; Z83.3 Family history of diabetes mellitus; Z82.49 Family history of ischemic heart disease and other diseases of the circulatory system; Z80.9 Family history of malignant neoplasm, unspecified
CPT/HCPCS: 52317; 82365; 74018; J2250; J1100; J2405; J2001; J3010; J1580; J0290; J2704

== ENCOUNTER → 2020-12-29 | Outpatient (CLI) | payer MEDICARE, OTHER ==
[~2020-12-29] MED LIST changes: -AMPICILLIN 1,000 MG in SODIUM CHLORIDE 0.9% 50 ML IVPB PRN; +CASIRIVIMAB (REGN10933) (EUA) 600 MG, IMDEVIMAB (REGN10987) (EUA) 600 MG in SODIUM CHLO... IVPB ONE; -GENTAMICIN 90 MG in SODIUM CHLORIDE 0.9% 100 ML IVPB PRN; -HYDROmorphone 0.5 MG/0.5 ML SYRINGE IVP PRN; -LACTATED RINGERS 1,000 ML IV SCH; -MIDAZOLAM 2 MG/2 ML VIAL IV PRN; -ONDANSETRON 4 MG/2 ML VIAL IVP PRN; +SODIUM CHLORIDE 0.9% 50 ML IVPB ONE; +SODIUM CHLORIDE 0.9% 500 ML 500 ML in EMPTY BAG 1 BAG IV PRN; -fentaNYL (PF) 50 MCG/ML 2 ML AMP IV PRN
[2020-12-29 11:24] VITALS: TEMP 98
[2020-12-29 11:50] VITALS: RESP 16
[2020-12-29 13:01] VITALS: BP 119/72; PULSE 66
== END ==
LOC: PROCWHC3 10:05
PROVIDERS: ATTEND Nurse Practitioner Family
DX: U07.1 COVID-19 (principal); Z88.2 Allergy status to sulfonamides; Z87.891 Personal history of nicotine dependence
CPT/HCPCS: 96360; Q0243; M0243; 96361

== ENCOUNTER → 2021-02-15 | Outpatient (CLI) | payer MEDICARE, OTHER ==
--- NOTE | 2021-02-15 16:37 | CT ---
EXAMINATION TYPE: CT abdomen pelvis wo con DATE OF EXAM: 02/15/2021 COMPARISON: 12/23/2019 HISTORY: 35-year-old male N20.0, calculus of kidney, N39.[address] DLP: 217.6 mGycm. Automated exposure control for dose reduction was used. TECHNIQUE: Contiguous axial scanning of the abdomen and pelvis without IV contrast. Coronal and sagit salvador reconstructions performed. FINDINGS: Pectus carinatum. There is a pericardial-based calcification anteriorly which remains unchanged. Hear t normal size and no pericardial effusion. Lung bases clear without pleural effusion. Lack of IV contrast limits assessment of the solid abdominal viscera, nose, and vascular structures. Noncontrast appearance of the liver, gallbladder, adrenal glands, right kidney, spleen, and pancreas show no gross. Punctate 3 mm nonobstructive left renal calculus. No hydronephrosis on either side. IVC filter. No dilated small bowel, free fluid, or free air. Paucity of intra-abdominal fat and lack of contrast limits assessment of abdominal lymphadenopathy. Normal appendix. Mild stool within the distal sigmoid. Bladder nondistended. Prostate gland measures 4.6 cm wide. Pelvic phlebolith. Redemonstrated 1 cm will dder calculus, smaller in size compared to 2.0 cm on 12/23/2019. No abnormal fluid collection in the pelvis. Limited assessment of pelvic lymph nodes. Intertrochanteric fracture deformity proximal right femur. Partially visualized retrograde intramedul vy nail fixation left femur. Bony bridging across the SI joints. Osteopenia. IMPRESSION: 1. Punctate 3 mm nonobstructive left renal calculus. No hydronephrosis is seen. 2. A 1 cm bladder calculus. The larger 2 cm bladder calculus seen on 12/23/2019 is no longer seen. 3. Noncontrast exam further limited by paucity of intra-abdominal fat.
== END | disposition home or self-care (01) ==
LOC: RADCTMAIN 14:24
PROVIDERS: ATTEND Urology
DX: N20.0 Calculus of kidney (principal); N39.0 Urinary tract infection, site not specified; N21.0 Calculus in bladder
CPT/HCPCS: 74176

== ENCOUNTER → 2021-02-17 | Outpatient (CLI) | payer MEDICARE, OTHER ==
[2021-02-17 15:11] LABS: African American GFR (CKD) >90 (>60 ml/min/1.73 sqM); Anion Gap 9 mmol/L; Blood Urea Nitrogen 11 mg/dL (9-20); Calcium 9.8 mg/dL (8.4-10.2); Carbon Dioxide 27 mmol/L (22-30); Chloride 103 mmol/L (98-107); Glucose 75 mg/dL (74-99); Non-African American GFR(CKD) >90 (>60 ml/min/1.73 sqM); Potassium 4.5 mmol/L (3.5-5.1); Sodium 139 mmol/L (137-145)
[2021-02-17 15:20] LABS: Basophils % (A) 1 %; Eosinophils # (A) 0.1 k/uL (0-0.7); Eosinophils % (A) 1 %; HCT 44.2 % (39.0-53.0); Lymphocytes # (A) 1.5 k/uL (1.0-4.8); Lymphocytes % (A) 34 %; MCH 31.1 pg (25.0-35.0); MCHC 33.9 g/dL (31.0-37.0); Mean Platelet Volume 8.7; Monocytes # (A) 0.4 k/uL (0-1.0); Monocytes % (A) 8 %; Neutrophils # (A) 2.4 k/uL (1.3-7.7); Neutrophils % (A) 52 %; Platelet Count 326 k/uL (150-450); RBC 4.81 m/uL (4.30-5.90); RDW 13.8 % (11.5-15.5); WBC 4.5 k/uL (3.8-10.6)
[2021-02-17 15:46] LABS: Amorphous Sediment,Urine Rare /hpf; Appearance,Urine Clear (Clear); Bacteria,Urine Many /hpf; Bilirubin,Urine Negative (Negative); Blood,Urine Negative (Negative); Color,Urine Light Yellow; Glucose,Urine (UA) Negative (Negative); Ketones,Urine Negative (Negative); Leukocyte Esterase,Urine Trace (Negative); Nitrite,Urine Negative (Negative); Protein,Urine Negative (Negative); RBC,Urine 1 /hpf (0-5); Specific Gravity,Urine 1.004 (1.001-1.035); Squamous Epithelial Cell,Urine <1 /hpf (0-4); Urobilinogen,Urine <2.0 mg/dL (<2.0); WBC,Urine 6 /hpf (0-5)
== END | disposition home or self-care (01) ==
LOC: LABPAT 13:40
PROVIDERS: ATTEND Urology
DX: Z01.812 Encounter for preprocedural laboratory examination (principal); N21.9 Calculus of lower urinary tract, unspecified
CPT/HCPCS: 80048; 81001; 85025; 87086

== ENCOUNTER 2021-02-24 06:52 | Day surgery (SDC) | payer MEDICARE, OTHER ==
[2021-02-17 10:51] VITALS: BMI 17.4
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
[~2021-02-24 06:52] MED LIST changes: +AMPICILLIN 1,000 MG in SODIUM CHLORIDE 0.9% 50 ML IVPB PRN; -CASIRIVIMAB (REGN10933) (EUA) 600 MG, IMDEVIMAB (REGN10987) (EUA) 600 MG in SODIUM CHLO... IVPB ONE; +DEXAMETHASONE SOD PHOSPHATE 4 MG/ML 1 ML VIAL IV ONE; +GENTAMICIN 90 MG in SODIUM CHLORIDE 0.9% 100 ML IVPB PRN; +LACTATED RINGERS 1,000 ML IV SCH; +LIDOCAINE 1% (10MG/ML) FOR IV START INTRADERMA PRN; +ONDANSETRON 4 MG/2 ML VIAL IVP ONE; -SODIUM CHLORIDE 0.9% 50 ML IVPB ONE; -SODIUM CHLORIDE 0.9% 500 ML 500 ML in EMPTY BAG 1 BAG IV PRN
[2021-02-24] MEDS ORDERED: HYDROmorphone 0.5 MG/0.5 ML SYRINGE IVP PRN (07:00)
[2021-02-24 07:52] VITALS: TEMP 98.3
--- NOTE | 2021-02-24 07:53 | XR ---
EXAMINATION TYPE: XR KUB DATE OF EXAM: 02/24/2021 COMPARISON: 01/22/2020 INDICATION: Bladder stone TECHNIQUE: Single view abdomen frontal projection FINDINGS: There is a nonspecific bowel gas pattern with air within small bowel loops as well as the colon. Psoas margins are normal. No organomegaly is present. Filter is at the L2-3 level. 4 body overlies the right midabdomen. There is a 1.0 cm calcification in the midline may be a small residual urinary bladder stone. This is smaller than 2.2 cm previous. Phleboliths are within the inferior hemipelves. IMPRESSION: 1. 1.0 cm midline calcification may be residual urinary bladder stone.
[2021-02-24] MEDS ORDERED: DEXAMETHASONE SOD PHOS (MDV) 100 MG/10 ML VIAL IVP ONE (08:02)
[2021-02-24] MEDS ORDERED: ONDANSETRON 4 MG/2 ML VIAL IVP ONE (08:03)
[2021-02-24] MEDS ORDERED: MIDAZOLAM 2 MG/2 ML VIAL ONE (09:14)
[2021-02-24] MEDS ORDERED: fentaNYL (PF) 50 MCG/ML 2 ML AMP ONE (09:14)
[2021-02-24] MEDS ORDERED: PROPOFOL 10 MG/ML 20 ML VIAL IV ONE (09:14)
--- NOTE | 2021-02-24 09:48 | FL ---
Fluoroscopy History: BLADDER STONE CHECK PATENCY LT URETER. 5 SEC FL TIME. NO IMAGES
[2021-02-24 10:02] VITALS: RESP 16
--- NOTE | 2021-02-24 10:08 | P.OP ---
Date of Procedure: 02/24/21 Preoperative Diagnosis: Bladder stone, possible left ureteral stone Postoperative Diagnosis: Bladder stone Procedure(s) Performed: Cystoscopy, left ureteral catheterization, cystoscopy lithotripsy (small) Anesthesia: MAC Surgeon: Jean Rose Estimated Blood Loss (ml): 0 Pathology: other (Stone) Condition: stable Disposition: PACU Indications for Procedure: The patient is a 35-year-old quadriplegic. He is on intermittent catheterization. He has had increasing urinary infections as of late. Computed tomography scan identified a bladder stone about 1 cm as well as possibly a distal left ureteral stone. He comes for cystoscopy left retrograde and cystoscopy lithotripsy Description of Procedure: Patient is brought to the operating suite. He is given IV sedation on the operating table. He's placed lithotomy position with sterile prep and drape. Cystoscopy Foroblique and 17-Liberian sheath identifies a normal urethra. The prostate is not obstructing. The bladder wall shows a 1 cm stone. The left ureteral orifice is intubated with an 035 wire pass by the calcification that I thought could be a stone. The calcification is outside the ureter. There is no obstruction of the ureter on the left. With the 500 laser probe I then break the stone into tiny pieces and flushed out of the bladder. The bladder is drained. A 16-Liberian coud-tip catheter is introduced the bladder with clear urine return. The patient is returned recovery room good condition. The catheter can be removed in 24 hours Impression successful cystoscopy lithotripsy, Recommendations. The patient be discharged home upon recovery. Indwelling catheter. He will be removed in 24 hours. A follow-up in the office next couple weeks.
[2021-02-24 10:21] VITALS: BP 129/74; PULSE 50
== END 2021-02-24 11:12 | disposition home or self-care (01) ==
LOC: OR 06:52
PROVIDERS: ATTEND Urology
DX: N21.0 Calculus in bladder (principal); G82.50 Quadriplegia, unspecified; T14.90XS Injury, unspecified, sequela; W16.42XS Fall into unspecified water causing other injury, sequela; Z87.891 Personal history of nicotine dependence; Z79.899 Other long term (current) drug therapy; Z88.2 Allergy status to sulfonamides
CPT/HCPCS: 82365; 74018; 52317; C1769; J2250; J2405; J3010; J1580; J0290; J1100; J2704

== ENCOUNTER → 2023-03-16 | Outpatient (CLI) | payer MEDICARE, OTHER ==
[2023-03-17 02:23] LABS: Basophils # (A) 0.04 X 10*3/uL (0.00-0.10); Basophils % (A) 0.8 %; Eosinophils # (A) 0.11 X 10*3/uL (0.04-0.35); Eosinophils % (A) 2.2 %; HCT 40.7 % (39.6-50.0); HGB 13.5 g/dL (13.0-17.0); Lymphocytes # (A) 1.94 X 10*3/uL (0.90-5.00); Lymphocytes % (A) 39.1 %; MCH 29.9 pg (27.0-32.0); MCHC 33.2 g/dL (32.0-37.0); Mean Platelet Volume 12.1 FL (9.5-12.2); Monocytes # (A) 0.53 X 10*3/uL (0.20-1.00); Monocytes % (A) 10.7 %; NRBC Per 100 WBC 0 X 10*3/uL (0.00-0.01); Neutrophils # (A) 2.33 X 10*3/uL (1.80-7.70); Platelet Count 242 X 10*3/uL (140-440); RBC 4.52 X 10*6/uL (4.40-5.60); RDW 13.4 % (11.5-14.5); WBC 4.96 X 10*3/uL (4.50-10.00)
[2023-03-17 02:25] LABS: Blood Urea Nitrogen 15.6 mg/dL (9.0-27.0); Calcium 9.1 mg/dL (8.7-10.3); Carbon Dioxide 25.9 mmol/L (21.6-31.8); Chloride 104 mmol/L (96-109); Glucose 100 mg/dL (70-110); Potassium 4.4 mmol/L (3.5-5.5); Sodium 139 mmol/L (135-145)
== END | disposition home or self-care (01) ==
LOC: LABPAT 16:29
PROVIDERS: ATTEND Urology
DX: Z01.812 Encounter for preprocedural laboratory examination (principal); N21.9 Calculus of lower urinary tract, unspecified
CPT/HCPCS: 80048; 85025

== ENCOUNTER → 2023-03-20 | Outpatient (CLI) | payer MEDICARE, OTHER ==
[2023-03-21 02:47] LABS: Appearance,Urine Turbid (Clear); Bilirubin,Urine Small (Negative); Blood,Urine Large (Negative); Color,Urine Dark Yellow (Yellow); Ketones,Urine Trace (Negative); Nitrite,Urine Positive (Negative); PH, Urine 6.5; Specific Gravity,Urine 1.026 (1.001-1.030)
[2023-03-21 04:18] LABS: Bacteria,Urine 3+ (None Seen); Calcium Oxalate Crystals,Urine Present (None Seen); Mucus,Urine Present
== END | disposition home or self-care (01) ==
LOC: LABWHC1 14:54
PROVIDERS: ATTEND Urology
DX: N21.9 Calculus of lower urinary tract, unspecified (principal)
CPT/HCPCS: 81001; 87077; 87086; 87186

== ENCOUNTER 2023-03-22 05:46 | Day surgery (SDC) | payer MEDICARE, OTHER ==
[2023-03-20 09:21] VITALS: BMI 16.0
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
[~2023-03-22 05:46] MED LIST changes: -DEXAMETHASONE SOD PHOSPHATE 4 MG/ML 1 ML VIAL IV ONE; +GENTAMICIN 80 MG in SODIUM CHLORIDE 0.9% 100 ML IVPB PRN; -GENTAMICIN 90 MG in SODIUM CHLORIDE 0.9% 100 ML IVPB PRN; -LACTATED RINGERS 1,000 ML IV SCH; -LIDOCAINE 1% (10MG/ML) FOR IV START INTRADERMA PRN; -ONDANSETRON 4 MG/2 ML VIAL IVP ONE
[2023-03-22] MEDS ORDERED: DEXAMETHASONE SOD PHOSPHATE 4 MG/ML 1 ML VIAL IV ONE (06:12)
[2023-03-22] MEDS ORDERED: LACTATED RINGERS 1,000 ML IV SCH (06:12)
[2023-03-22] MEDS ORDERED: ONDANSETRON 4 MG/2 ML VIAL IVP ONE ×2 (06:12→07:08)
[2023-03-22] MEDS ORDERED: HYDROmorphone 0.5 MG/0.5 ML SYRINGE IVP PRN (07:00)
[2023-03-22] MEDS ORDERED: DEXAMETHASONE SOD PHOSPHATE 4 MG/ML 1 ML VIAL IVP ONE (07:09)
[2023-03-22] MEDS ORDERED: GLYCOPYRROLATE 0.2 MG/ML 2 ML VIAL ONE (07:22)
[2023-03-22] MEDS ORDERED: fentaNYL (PF) 50 MCG/ML 2 ML AMP ONE (07:22)
[2023-03-22] MEDS ORDERED: PROPOFOL 10 MG/ML 20 ML VIAL IV ONE (07:22)
[2023-03-22] MEDS ORDERED: LIDOCAINE 1% INJ 10MG/ML (20 ML MDV) ONE (07:22)
[2023-03-22] MEDS ORDERED: PHENYLEPHRINE-0.9% NACL SYG 1,000 MCG/10 ML SYRINGE ONE (07:22)
[2023-03-22] MEDS ORDERED: LABETALOL 5 MG/ML VIAL MDV ONE (07:22)
[2023-03-22] MEDS ORDERED: MIDAZOLAM 2 MG/2 ML VIAL ONE (07:22)
--- NOTE | 2023-03-22 07:43 | XR ---
EXAMINATION TYPE: XR KUB DATE OF EXAM: 03/22/2023 Comparison: 02/24/2021 Clinical History: 37-year-old male Bladder Stone N21.9 Findings: Gassy bowel is present throughout especially colon. There is a large bladder calculus measuring 3.9 x 2.1 cm. IVC filter. Left-sided pelvic phlebolith. Impression: Gassy bowel but overall nonobstructive pattern. A 3.9 x 2.1 cm bladder calculus is suggested. IVC torie ter.
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
[2023-03-22 10:20] VITALS: TEMP 96.8
[2023-03-22 10:21] VITALS: RESP 16
[2023-03-22] MEDS ORDERED: LACTATED RINGERS 1,000 ML IV ONE (11:00)
[2023-03-22 12:01] VITALS: BP 137/90; PULSE 75
== END 2023-03-22 11:55 | disposition home or self-care (01) ==
LOC: OR 05:46
PROVIDERS: ATTEND Urology
DX: N21.0 Calculus in bladder (principal); N31.9 Neuromuscular dysfunction of bladder, unspecified; G82.50 Quadriplegia, unspecified; F10.90 Alcohol use, unspecified, uncomplicated; F12.90 Cannabis use, unspecified, uncomplicated; Z87.891 Personal history of nicotine dependence; Z88.1 Allergy status to other antibiotic agents; Z88.2 Allergy status to sulfonamides; Z99.3 Dependence on wheelchair
CPT/HCPCS: 82365; 74018; 52318; C1769; C1758; J2250; J1100; J2405; J2001; J3010; J1580; J0290; J2704; J2371; J1920